=== PATIENT | female | born 2000 | race African-American/Black ===

== ENCOUNTER 2023-01-17 11:58 | Emergency (ER) | payer SELFPAY ==
[~2023-01-17] VITALS: Ht 162.6 cm; Wt 64.1 kg
[2023-01-17 13:32] LABS: BASO % 0.3 % (0.0-2.0); EOS % 0.1 % (0.0-4.0); GRAN # 11.1 K/mm3 (1.4-6.5); GRAN % 87.7 % (42.2-75.2); HEMATOCRIT 41.8 % (37.0-47.0); HEMOGLOBIN 14.5 g/dl (12.5-16.0); LYMPH # 0.9 K/mm3 (1.2-3.4); LYMPH % 7.5 % (20.0-51.0); MEAN CELL VOLUME 92 fl (80.0-100.0); MEAN CORPUSCULAR HEMOGLOBIN 32 pg (27-31); MEAN CORPUSCULAR HGB CONC 35 g/dl (33.0-37.0); MEAN PLATELET VOLUME 10.8 fl (7.4-10.4); MONO # 0.5 K/mm3 (0.1-0.6); MONO % 4.1 % (1.7-9.3); PLATELET COUNT 309 K/mm3 (130-400); RED BLOOD COUNT 4.53 M/mm3 (4.10-5.30); REDCELL DISTRIBUTION WIDTH-CV 11.9 % (11.5-14.5)
[2023-01-17 13:49] LABS: ALBUMIN 4.6 gm/dL (3.5-5.0); BILIRUBIN,TOTAL 0.5 mg/dL (0.2-1.2); CALCIUM 9.8 mg/dL (8.4-10.2); CREATININE, serum 0.84 mg/dL (0.57-1.11); POTASSIUM 3.8 mmol/L (3.5-4.5)
[2023-01-17 14:56] LABS: COLLECTION METHOD CLEAN CATCH
[2023-01-17 15:09] LABS: URINE APPEARANCE Clear (CLEAR/HAZY); URINE COLOR Yellow (YELLOW)
[2023-01-17 15:10] LABS: PH >= 9.0 (5.0-8.5); URINE BLOOD TRACE-INTACT (NEGATIVE); URINE PROTEIN(semi-quant) 1+ (NEGATIVE)
[2023-01-17 15:11] LABS: URINE GLUCOSE Negative (NEGATIVE); URINE KETONE TRACE (NEGATIVE); URINE NITRATE Negative (NEGATIVE); URINE UROBILINOGEN 0.2 E.U/dL (0.2-1.0)
[2023-01-17 15:27] LABS: SQUAMOUS EPITHELIAL 0-2 /hpf (0-10)
[2023-01-17 16:22] VITALS: BP 123/84; PULSE 76
[2023-01-17 16:23] VITALS: TEMP 98.3
== END 2023-01-17 16:23 | disposition home or self-care (01) ==
LOC: COL.ER 11:58
PROVIDERS: Physician Assistant
DX: N94.6 Dysmenorrhea, unspecified (principal); D72.829 Elevated white blood cell count, unspecified; Z28.310 Unvaccinated for COVID-19; Z87.42 Personal history of other diseases of the female genital tract
CPT/HCPCS: J1885; J2405; J7030